=== PATIENT | female | born 1975 | race Asian ===

== ENCOUNTER 2019-03-31 12:22 | Outpatient (CLI) | payer OTHER ==
[2019-03-31 18:20] LABS: BASOPHILS % (AUTO) 0.5 %; EOSINOPHILS % (AUTO) 0.5 %; HGB - HEMOGLOBIN 12.7 g/dL (12.0-16.0); LYMPHOCYTES # (AUTO) 1.3 10^3/uL (1.5-3.5); LYMPHOCYTES % (AUTO) 29.5 %; MEAN CORPUSCULAR HEMOGLOBIN 28.8 pg (27.0-31.0); MEAN PLATELET VOLUME 12.2 fL (7.9-10.8); MONOCYTES # (AUTO) 0.3 10^3/uL (0.0-1.0); MONOCYTES % (AUTO) 6.1 %; NEUTROPHILS # (AUTO) 2.8 10^3/uL (1.5-6.6); NEUTROPHILS % (AUTO) 63.2 %; PLT - PLATELET COUNT 196 10^3/uL (130-450); RED BLOOD COUNT 4.41 10^6/uL (4.20-5.40); RED CELL DISTRIBUTION WIDTH 12.4 % (12.0-15.0); WHITE BLOOD COUNT 4.4 x10^3/uL (4.8-10.8)
[2019-03-31 18:45] LABS: ALBUMIN 4.4 g/dL (3.2-5.5); ALBUMIN/GLOBULIN RATIO 1.9 (1.0-2.2); ALKALINE PHOSPHATASE 32 IU/L (42-121); ALT ALANINE AMINOTRANSFERASE 11 IU/L (10-60); AST ASPARTATE AMINOTRANSFERASE 16 IU/L (10-42); BILIRUBIN,TOTAL 1.4 mg/dL (0.2-1.0); BUN - BLOOD UREA NITROGEN 10 mg/dL (6-20); CALCIUM 8.6 mg/dL (8.5-10.3); CARBON DIOXIDE - CO2 30 mmol/L (21-32); CHLORIDE 102 mmol/L (101-111); CHOL/HDL RATIO 2.9 (<4.4); CHOLESTEROL 177 mg/dL; CREATININE 0.5 mg/dL (0.4-1.0); GFR - MDRD 136 (>89); GLUCOSE 95 mg/dL (70-100); HDL CHOLESTEROL 62 mg/dL; LDL CHOLESTEROL,CALCULATED 102 mg/dL; LDL/HDL RATIO 1.6 (<4.4); SODIUM 139 mmol/L (135-145); TOTAL PROTEIN 6.7 g/dL (6.7-8.2); VLDL CHOLESTEROL 13 mg/dL
== END 2019-03-31 23:59 | disposition home or self-care (01) ==
LOC: LAB.N 12:22
PROVIDERS: ATTEND Nurse Practitioner Gerontology
DX: Z13.9 Encounter for screening, unspecified (principal)
CPT/HCPCS: 36415; 80053; 80061; 83721; 84443; 85025

== ENCOUNTER 2019-04-08 13:49 | Outpatient (CLI) | payer OTHER ==
--- NOTE | 2019-04-09 08:38 | Mammography Report ---
Reason: ROUTINE MAMMO Procedure Date: 04/08/2019 Accession Number: [id number] / [id number] Procedure: MGN - Screening Mammo Dig Bilat CPT Code: Final Report FULL RESULT: EXAM: Screening Mammo Dig Bilat DATE: 04/08/2019 2:12 PM CLINICAL HISTORY: Screening encounter. baseline examination. TECHNIQUE: (B) - Bilateral CC, laterally exaggerated CC, MLO views were obtained. COMPARISON: None PARENCHYMAL PATTERN: (VD) - The breast(s) demonstrate(s) extremely dense parenchyma, limiting the sensitivity of mammography. FINDINGS: There are no suspicious masses, calcifications, or areas of distortion. IMPRESSION: Negative examination. BI-RADS category 1. RECOMMENDATION: (ANNUAL) - Recommend routine annual screening mammography. BI-RADS CATEGORY: (1) - Negative. STANDARD QUALIFYING STATEMENTS: 1. This examination was not reviewed with the aid of Computer-Aided Detection (CAD). 2. A negative or benign imaging report should not preclude biopsy if clinically suspicious findings are present. 3. Dense breasts may obscure an underlying neoplasm. 4. This examination was reviewed without the aid of 3D breast imaging (tomosynthesis).
== END 2019-04-08 13:50 | disposition home or self-care (01) ==
LOC: DI.N 13:49
PROVIDERS: ATTEND Nurse Practitioner Gerontology
DX: Z12.31 Encounter for screening mammogram for malignant neoplasm of breast (principal)
CPT/HCPCS: 77067

== ENCOUNTER 2019-06-28 14:08 | Emergency (ER) | payer OTHER ==
--- NOTE | 2019-06-28 14:29 | ED Physician Documentation ---
PD HPI FEVER - Stated complaint Stated Complaint: COUGH - History obtained from History obtained from: Patient (43-year-old woman without any health problems got back from [place] about a week ago. She was in [facility]. She is had 6 days of fever with some back pain, sore throat. No runny nose or cough. Mild shortness of breath.) Review of Systems Ten Systems: 10 systems reviewed and negative Constitutional: reports: Fever, Chills, Fatigue Nose: denies: Rhinorrhea / runny nose Throat: reports: Sore throat Cardiac: denies: Chest pain / pressure, Palpitations Respiratory: reports: Dyspnea. denies: Cough PD ED PE NORMAL - Vitals Vital signs reviewed: Yes - General General: Alert and oriented X 3, No acute distress - HEENT HEENT: Ears normal - Neck Neck: Supple, no meningeal sign, No bony TTP - Cardiac Cardiac: RRR, No murmur - Respiratory Respiratory: No respiratory distress, Clear bilaterally - Abdomen Abdomen: Non tender - Derm Derm: No rash - Neuro Neuro: Alert and oriented X 3, Normal speech Results - Vitals Vitals: Vital Signs - 24 hr 06/28/19 06/28/19 14:19 14:30 Temperature 37.0 C 37.0 C Heart Rate 69 69 Respiratory 18 14 Rate Blood Pressure 129/79 129/79 O2 Saturation 100 100 Oxygen O2 Source Room air - Labs Labs: Laboratory Tests 06/28/19 06/28/19 14:44 14:44 Influenza A (Rapid) Negative Influenza B (Rapid) Negative Group A Strep Rapid Negative PD MEDICAL DECISION MAKING - ED course ED course: 43-year-old woman returns from [place] with fever. She appears well and her vitals are normal here as is her examination. PE is considered but given the lack of Abnormal vital signs or leg symptoms or hemoptysis this is considered unlikely. Consideration for coronavirus was undertaken of course the health department had already known about this patient and they recommended we collect a viral panel and she can be discharged home with home quarantine. They are involved. Flu strep and chest x-ray are negative. Departure - Departure Disposition: 01 Home, Self Care Clinical Impression: Fever Qualifiers: Fever type: due to other condition Qualified Code(s): R50.81 - Fever presenting with conditions classified elsewhere Condition: Good Record reviewed to determine appropriate education?: Yes Instructions: ED Fever Unconf Cause Comments: Follow-up with your doctor Sunday if not better, return for new or worsening symptoms. Your chest x-ray is normal as is your flu and strep swab. Viral panel is collected and should be followed up on by the health department. Follow-up with them in a week if you have not heard. Stay in your house until then. Do not leave your house.
--- NOTE | 2019-06-28 15:04 | XRAY Report ---
Reason: fever Procedure Date: 06/28/2019 Accession Number: [id number] / [id number] Procedure: XR - Chest 2 View X-Ray CPT Code: 23871 Final Report FULL RESULT: EXAM: CHEST RADIOGRAPHY EXAM DATE: 06/28/2019 02:56 PM. CLINICAL HISTORY: Fever. COMPARISON: CHEST 2 VIEW PA/LAT 06/21/2015 2:03 PM. TECHNIQUE: 2 views. FINDINGS: Lungs/Pleura: No focal opacities evident. No pleural effusion. No pneumothorax. Normal volumes. Mediastinum: Heart and mediastinal contours are unremarkable. Other: None. IMPRESSION: Normal 2-view chest radiography. RADIA
[2019-06-28 15:12] LABS: RAPID STREP SCREEN Negative (Negative)
[2019-06-28 15:52] VITALS: BP 128/80
== END 2019-06-28 15:30 | disposition home or self-care (01) ==
LOC: ED 14:08
DX: R50.9 Fever, unspecified (principal)
CPT/HCPCS: 71046; 81599; 87070; 87275; 87276; 87430; 99283; 99284

== ENCOUNTER 2019-08-19 12:30 | Outpatient (CLI) | payer OTHER ==
--- NOTE | 2019-08-19 21:06 | Ultrasound Report ---
Reason: IUD SURVEILLANCE Procedure Date: 08/19/2019 Accession Number: [id number] / [id number] Procedure: US - Pelvic w/Transvaginal CPT Code: Final Report FULL RESULT: EXAM: PELVIC ULTRASOUND EXAM DATE: 08/19/2019 01:44 PM. CLINICAL HISTORY: Intrauterine device surveillance. Spotting. COMPARISON: None. TECHNIQUE: Realtime transabdominal pelvic scan performed to identify the uterus and adnexa and as an overview of other pelvic structures, followed by transvaginal scan to provide greater detail of the uterus and adnexa, with static image documentation. FINDINGS: Uterus: 12.3 x 4.8 x 4.5 cm, volume 139 cc. Anteverted position. Normal overall size and echotexture. Masses: A large right fundal transmural fibroid measures 8.5 x 7.4 x 6.5 cm. Endometrium: 17 mm. A ring-shaped IUD is present in the distal endometrial canal measuring 2.2 cm. It appears in satisfactory position. No endometrial thickening or mass lesion evident. Cervix: Unremarkable. Right Ovary: 2.0 x 1.8 x 2.4 cm, volume 4.5 cc. Normal echotexture and blood flow. Left Ovary: 3.2 x 3.1 x 2.2 cm, volume 11.4 cc. Normal echotexture and blood flow. Free Fluid: A small amount of free fluid present surrounding the uterus. Other: None. IMPRESSION: 1. Ring-shaped IUD and distal endometrial canal in satisfactory position. 2. Large right fundal transmural fibroid measuring up to 8.5 cm with probable small submucosal component. 3. Small free fluid noted. RADIA
== END 2019-08-19 12:31 | disposition home or self-care (01) ==
LOC: DI 12:30
PROVIDERS: ATTEND Nurse Practitioner Gerontology
DX: Z30.431 Encounter for routine checking of intrauterine contraceptive device (principal); D25.1 Intramural leiomyoma of uterus
CPT/HCPCS: 76830; 76856

== ENCOUNTER 2020-01-25 09:14 | Outpatient (CLI) | payer OTHER ==
--- NOTE | 2020-01-25 13:42 | Ultrasound Report ---
PROCEDURE: Pelvic w/Transvaginal INDICATIONS: FIBROID TECHNIQUE: Real-time scanning was performed of the pelvic organs, with image documentation. Additional endovagi nal scanning was necessary due to incomplete visualization of the adnexal and endometrial structures by transabdominal scanning. COMPARISON: 08/19/2019 FINDINGS: Transabdominal scanning: Limited scanning through the kidneys shows no hydronephrosis. No pathologi c free abdominal or pelvic fluid. Endovaginal scanning: Uterus: Uterus is normal in size at 9.2 x 4.4 x 8.8 cm. The endometrium measures 9 mm in combined t hickness. An IUD is seen at the expected location within the uterine fundus. The uterus demonstrates a heterogeneous appearance. There is a fibroid seen on the right which is intramural/submucosal and measures 6.1 x 5.3 x 4.7. This is smaller than on the prior study when it measured 8.5 x 7.5 x 6.5 cm Ovaries: The right ovary measures 2.6 x 1.5 x 2.3 cm and demonstrates a septated cyst that measures up to 1.5 cm. The left ovary measures 2.5 x 1.8 x 2.1 cm and also demonstrates a septated cyst that measures up to 1.5 cm. Each ovary demonstrates less than 12 follicles. No adnexal masses are seen. IMPRESSION: There is a right-sided uterine fibroid that today measures 6.1 x 5.3 x 4.7, which is smaller than on the prior examination. Please correlate with interval potential treatment history. An IUD is seen. Septated ovarian cysts are seen involving the ovaries that measure up to 1.5 cm, which are most likel y benign in a patient of this age. Reviewed by: Rome Kendall MD on 01/25/2020 12:40 PM ABENA Approved by: Rome Kendall MD on 01/25/2020 12:40 PM ABENA Station ID: [id number]
== END 2020-01-25 09:15 | disposition home or self-care (01) ==
LOC: DI 09:14
PROVIDERS: ATTEND Obstetrics & Gynecology
DX: D25.9 Leiomyoma of uterus, unspecified (principal)
CPT/HCPCS: 76830; 76856

== ENCOUNTER 2020-03-16 16:39 | Outpatient (CLI) | payer OTHER ==
--- NOTE | 2020-03-17 10:47 | Ultrasound Report ---
PROCEDURE: Pelvic w/Transvaginal INDICATIONS: FIBROID TECHNIQUE: Real-time scanning was performed of the pelvic organs, with image documentation. Additional endovagi nal scanning was necessary due to incomplete visualization of the adnexal and endometrial structures by transabdominal scanning. COMPARISON: Prior pelvic ultrasound 01/25/2020 and 08/19/2019. FINDINGS: Transabdominal scanning: Limited scanning through the kidneys shows no hydronephrosis. No pathologi c free abdominal or pelvic fluid. Endovaginal scanning: Uterus: Uterus is mildly enlarged in size at 6.2 x 2.4 x 10.9 cm., Containing uterine fibroids. The largest is located on the right and is subserosal/intramural measuring up to 7.0 x 7.9 x 8.1 cm. This compares to prior measurement of dated 08/19/2019 of 6.5 x 7.4 x 8.5 cm. Given slight differences in scan angulation this likely does not represent a significant change. There is also a additional midl ine anterior intramural fibroid measuring approximately 2.5 x 2.6 x 3.3 cm. The endometrium measures 15 mm in combined thickness. Centrally positioned IUD noted. Ovaries: The ovaries bilaterally are normal in size, measuring 2.8 x 1.2 x 3.0 cm on the right and 3 .1 x 2.4 x 2.3 cm on the left. A left ovarian follicular cyst measures 1.6 x 1.7 x 1.9 cm. IMPRESSION: Considering slight differences in angulation the dominant uterine fibroid on the right has not signif icantly changed from the measurements obtained in July of this year during additional pelvic ultraso und. This fibroid has not diminished in size, and a newly visualized fibroid measuring 2.5 x 2.6 x 3. 3 cm is currently described, potentially an exophytic component of the dominant fibroid on the right. Endometrial lining thickness is 15 mm, just below the threshold for hyperplasia. Centrally positioned IUD noted. Reviewed by: Heriberto Daniels MD on 03/17/2020 10:45 AM PDT Approved by: Heriberto Daniels MD on 03/17/2020 10:45 AM PDT Station ID: [id number]
== END 2020-03-16 16:40 | disposition home or self-care (01) ==
LOC: DI 16:39
PROVIDERS: ATTEND Obstetrics & Gynecology
DX: D25.1 Intramural leiomyoma of uterus (principal); D25.2 Subserosal leiomyoma of uterus; Z97.5 Presence of (intrauterine) contraceptive device
CPT/HCPCS: 76830; 76856

== ENCOUNTER 2020-04-08 10:24 | Emergency (ER) | payer OTHER ==
--- NOTE | 2020-04-08 10:43 | ED Physician Documentation ---
History of Present Illness - Stated complaint Stated Complaint: INJECTION/SENT BY - Chief complaint Chief Complaint: General - History obtained from History obtained from: Patient - Additonal information Additional information: 44-year-old woman with fibroids is getting Lupron preoperatively to shrink the tumors and checked into the emergency department for her IM injection. She has the med with her. She has no acute complaints. Review of Systems Constitutional: denies: Fever, Chills GI: denies: Abdominal Pain, Nausea, Vomiting Musculoskeletal: reports: Reviewed and negative PD PAST MEDICAL HISTORY - Allergies Allergies/Adverse Reactions: Allergies Allergy/AdvReac Type Severity Reaction Status Date / Time No Known Drug Allergies Allergy Verified 04/08/20 10:35 PD ED PE NORMAL - Vitals Vital signs reviewed: Yes - General General: Alert and oriented X 3, No acute distress - Derm Derm: Normal color, Warm and dry - Extremities Extremities: No edema, No calf tenderness / cord - Neuro Neuro: Alert and oriented X 3, Normal speech Results - Vitals Vitals: Vital Signs - 24 hr 04/08/20 10:30 Temperature 36.3 C L Heart Rate 66 Respiratory 98 H Rate Blood Pressure 100/57 L Oxygen O2 Source Room air PD MEDICAL DECISION MAKING - ED course ED course: She has no acute complaints, she was actually supposed to check in as an outpatient to the [facility] but ended up in the emergency department somewhat by mistake. We will give her her injection that she has with her after the pharmacist clears it. Departure - Departure Disposition: 01 Home, Self Care Clinical Impression: Fibroids Condition: Good Record reviewed to determine appropriate education?: Yes Instructions: ED Fibroids Comments: Follow-up with your applied biology professor as scheduled.
[2020-04-08 10:54] VITALS: BP 96/74
[2020-04-08] MEDS ORDERED: LEUPROLIDE 3.75 MG IM ONE (11:00)
== END 2020-04-08 10:54 | disposition home or self-care (01) ==
LOC: ED 10:24
DX: D25.9 Leiomyoma of uterus, unspecified (principal)
CPT/HCPCS: 96372; 99281; 99283

== ENCOUNTER 2020-04-16 10:54 | Outpatient (CLI) | payer OTHER | END 2020-04-16 10:55 | disposition home or self-care (01) | LOC: LAB 10:54 | PROVIDERS: ATTEND Obstetrics & Gynecology | DX: Z01.818 Encounter for other preprocedural examination (principal); D25.9 Leiomyoma of uterus, unspecified; Z20.828 Contact with and (suspected) exposure to other viral communicable diseases ==

== ENCOUNTER 2020-04-16 11:06 | Outpatient (CLI) | payer OTHER ==
--- NOTE | 2020-04-16 12:22 | XRAY Report ---
PROCEDURE: Chest 2 View X-Ray INDICATIONS: PREOP FOR HYSTERECTOMY TECHNIQUE: 2 view(s) of the chest. COMPARISON: CXR 06/28/2019. FINDINGS: Surgical changes and devices: None. Lungs and pleura: No pleural effusions or pneumothorax. Lungs are clear and unchanged. Mediastinum: Mediastinal contours are normal. Heart size is normal. Bones and chest wall: No suspicious bony abnormalities. Soft tissues appear unremarkable. IMPRESSION: Normal CXR. Reviewed by: Milton Mendenhall MD on 04/16/2020 12:21 PM PST Approved by: Milton Mendenhall MD on 04/16/2020 12:21 PM PST Station ID: [id number]
== END 2020-04-16 11:07 | disposition home or self-care (01) ==
LOC: DI 11:06
PROVIDERS: ATTEND Obstetrics & Gynecology
DX: Z01.818 Encounter for other preprocedural examination (principal); D25.9 Leiomyoma of uterus, unspecified; Z20.828 Contact with and (suspected) exposure to other viral communicable diseases

== ENCOUNTER 2020-04-21 07:43 | Day surgery (SDC) | payer OTHER ==
[~2020-04-21 07:43] MED LIST: CEFAZOLIN SODIUM IN 0.9 % NACL 2 GM/100 ML BAG IV ONE
[2020-04-21 08:09] LABS: HCG UR QUAL NEGATIVE
[2020-04-21] MEDS ORDERED: LACTATED RINGERS 1,000 ML IV ONE ×3 (08:23→15:24)
--- NOTE | 2020-04-21 09:18 | ANESTHESIA ---
Pre-Anesthesia VS, & Labs - Diagnosis Fibroid uterus - Procedure LAVH w/bilat salpigectomy, cystoscopy Vital Signs: Temp Pulse Resp BP Pulse Ox 36.4 C L 65 16 101/63 100 04/21/20 07:53 04/21/20 07:53 04/21/20 07:53 04/21/20 07:53 04/21/20 07:53 Height: 5 ft 6 in Weight (kg): 60.4 kg Body Mass Index: 21.4 BMI Classification: Healthy weight - NPO >8 hours - Is Patient ?: No - Lab Results Lab results reviewed: Yes Home Medications and Allergies Home Medications: Ambulatory Orders Vitamin B Complex 1 each PO DAILY 04/21/20 Vitamin B Complex 1 each PO DAILY 04/21/20 Allergies/Adverse Reactions: Allergies Allergy/AdvReac Type Severity Reaction Status Date / Time No Known Drug Allergies Allergy Verified 04/08/20 10:35 Anes History & Medical History - Anesthetic History Anesthesia Complications: reports: No previous complications Family history of Anesthesia Complications: Denies Family history of Malignant Hyperthermia: Denies - Medical History Cardiovascular: reports: None Pulmonary: reports: None, Other (dry cough x 1 month, states she gets this annualy) Gastrointestinal: reports: None Urinary: reports: None Musculoskeletal: reports: None Endocrine/Autoimmune: reports: None Skin: reports: None Psychosocial: reports: No issues indicated History of Cancer?: No Exam General: Alert, Oriented x3, Cooperative Dental: WNL Mouth Openin Fingerbreadth Neck Mobility: Normal Mallampati classification: II Thyromental Distance: greater than 6 cm Respiratory: Lungs clear, Normal breath sounds Cardiovascular: Regular rate Neurological: Normal speech Mental/Cognitive Status: Alert/Oriented X3, Normal for patient Cognitive Status: Within normal limits Plan Anesthesia Type: General, Transverse Abdominis Plane (TAP) Block (if convert to open) Consent for Procedure(s) Verified and Reviewed: Yes Code Status: Attempt Resuscitation ASA classification: 2-Mild systemic disease Is this case an emergency?: No
[2020-04-21] MEDS ORDERED: BUPIVACAINE 0.25%-EPI 1:200000 PF 30 ML VIAL ONE ×2 (09:22→11:50)
[2020-04-21] MEDS ORDERED: BUPIVACAINE 0.25% PF 30 ML VIAL ONE (09:22)
[2020-04-21] MEDS ORDERED: PHENAZOPYRIDINE 100 MG TABLET PO ONE (09:47)
[2020-04-21] MEDS ORDERED: KETOROLAC 30 MG/ML VIAL IVP ONE (10:40)
[2020-04-21] MEDS ORDERED: GLYCOPYRROLATE 1 MG/5 ML VIAL IVP ONE (10:40)
[2020-04-21] MEDS ORDERED: fentaNYL 100 MCG/2 ML VIAL IVP ONE (10:40)
[2020-04-21] MEDS ORDERED: ONDANSETRON 4 MG/2 ML VIAL IVP ONE (10:40)
[2020-04-21] MEDS ORDERED: DEXAMETHASONE 4 MG/ML VIAL IVP ONE (10:40)
[2020-04-21] MEDS ORDERED: MAGNESIUM SULFATE 1 GM/2 ML VIAL IV ONE (10:40)
[2020-04-21] MEDS ORDERED: ACETAMINOPHEN 1,000 MG/100 ML 100 ML IV ONE ×2 (10:40→10:45)
[2020-04-21] MEDS ORDERED: KETAMINE 500 MG/10 ML VIAL IVP ONE (10:40)
[2020-04-21] MEDS ORDERED: PROPOFOL 200 MG/20 ML VIAL IVP ONE (10:40)
[2020-04-21] MEDS ORDERED: ROCURONIUM 50 MG/5 ML VIAL IVP ONE (10:40)
[2020-04-21] MEDS ORDERED: ePHEDrine 50 MG/ML VIAL IVP ONE (10:40)
[2020-04-21] MEDS ORDERED: SUCCINYLCHOLINE 200 MG/10 ML VIAL IVP ONE (10:40)
[2020-04-21] MEDS ORDERED: MIDAZOLAM 2 MG/2 ML VIAL IVP ONE (10:40)
[2020-04-21] MEDS ORDERED: SODIUM CHLORIDE 0.9% IV ONE (10:40)
[2020-04-21] MEDS ORDERED: HYDROmorphone 1 MG/ML CARPUJECT IVP ONE (10:40)
[2020-04-21] MEDS ORDERED: LIDOCAINE-MPF 2% 5 ML VIAL IM ONE (10:40)
[2020-04-21] MEDS ORDERED: OXYTOCIN IV ONE (10:40)
[2020-04-21] MEDS ORDERED: PROPOFOL 500 MG/50 ML 500 MG/50 ML VIAL ONE (10:45)
[2020-04-21] MEDS ORDERED: BUPIVACAINE 0.25%-EPI 1:200000 PF 10 ML VIAL SUBQ ONE (11:28)
[2020-04-21] MEDS ORDERED: BUPIVACAINE 0.25%-EPI 1:200000 PF 30 ML VIAL SUBQ ONE ×3 (11:45)
[2020-04-21] MEDS ORDERED: HYDROmorphone 0.5 MG/0.5 ML SYRINGE IVP PRN ×2 (14:17→15:40)
[2020-04-21] MEDS ORDERED: ONDANSETRON 4 MG/2 ML VIAL IVP PRN ×2 (14:17→15:40)
[2020-04-21] MEDS ORDERED: ACETAMINOPHEN 500 MG TABLET PO PRN (14:18)
[2020-04-21] MEDS ORDERED: KETOROLAC 30 MG/ML VIAL IVP PRN (14:18)
--- NOTE | 2020-04-21 14:57 | OPERATIVE REPORT ---
Operative Report - General Procedure Date: 04/21/20 Planned Procedure: LAVH with BS and cysto Pre-Op Diagnosis: Fibroid uterus Procedure Performed: LAVH with BS and Cysto Post Op Diagnosis: Same - Procedure Note Primary Surgeon: Mao Beal MD Secondary Surgeon: Chrissy Vale Anesthesia Provider: Aracely Ugalde CRNA Anesthesia Technique: General ET tube Pathology: Uterus with both tubes attached. IV Fluids (mL): 1,600 Estimated Blood Loss (mL): 100 Urine Output (mL): 600
[2020-04-21] MEDS ORDERED: ATROPINE ABBOJECT 1 MG/10 ML SYRINGE IVP PRN (15:40)
[2020-04-21] MEDS ORDERED: MORPHINE 2 MG/ML CARPUJECT IVP PRN (15:40)
[2020-04-21] MEDS ORDERED: fentaNYL 100 MCG/2 ML VIAL IVP PRN (15:40)
[2020-04-21] MEDS ORDERED: METOCLOPRAMIDE 10 MG/2 ML VIAL IVP PRN (15:40)
[2020-04-21] MEDS ORDERED: NALOXONE 0.4 MG/ML VIAL IVP PRN (15:40)
[2020-04-21] MEDS ORDERED: ePHEDrine 50 MG/ML VIAL IVP PRN (15:40)
[2020-04-21] MEDS ORDERED: LACTATED RINGERS 1,000 ML IV SCH (16:00)
[2020-04-21] MEDS: PHENAZOPYRIDINE 100 MG TABLET PO SCH ×2 (16:36→21:25)
--- NOTE | 2020-04-21 17:42 | ANESTHESIA POST OP EVALUATION ---
Anesthesia Post Eval - Post Anesthesia Eval Vitals: Last Vital Signs Temp 36.8 C 04/21/20 17:15 Pulse 75 04/21/20 17:15 Resp 16 04/21/20 17:15 BP 94/59 L 04/21/20 17:15 Pulse Ox 99 04/21/20 17:15 CV Function Including HR & BP: positive: Stable Pain Control: positive: Satisfactory Nausea & Vomiting: positive: Negative Mental Status: positive: Baseline Respiratory Status: Airway Patent Hydration Status: Satisfactory Anesthesia Complications: positive: None
[2020-04-21] MEDS: oxyCODONE 5 MG TABLET PO PRN (21:24)
--- NOTE | 2020-04-22 02:11 | OPERATIVE REPORT ---
DATE OF SERVICE: 04/21/2020 Physician: Mao Beal MD PREOPERATIVE DIAGNOSIS: Fibroid uterus. POSTOPERATIVE DIAGNOSIS: Fibroid uterus. PROCEDURE PERFORMED: Total laparoscopic hysterectomy with bilateral salpingectomy and cystoscopy. SURGEON: Mao Beal MD [employer]: Lanie Vale MD ANESTHESIA: SOLE Nguyễn. ANESTHETIC: General via endotracheal tube. ESTIMATED BLOOD LOSS: 100 mL IV FLUIDS: 1600 mL URINE OUTPUT: 600 mL FINDINGS: Pelvic examination under anesthesia revealed a uterus which was roughly 14 week size and extended predominantly into the left lower quadrant. It appeared to be free and mobile. Upon entering the abdominal cavity, there was a large fibroid uterus which filled the pelvic cavity; however, there was adequate visualization on either side for which to do the hysterectomy. The tubes and ovaries appeared to be free of disease. There was evidence of endometriosis, particularly on the left uterosacral ligament. Ureters were visualized and noted to be within normal limits. Cystoscopy was performed at the end of the case, at which there was good evidence of good urinary flow from both ureters. PROCEDURE: Following adequate endotracheal anesthesia, patient was placed in dorsal lithotomy position in [facility]. At this point, a pelvic examination was performed and then she was prepped and draped in the usual fashion. A timeout was performed, at which concerns were addressed. The concern about the size of the uterus and the possible need to utilize a mini Pfannenstiel incision to remove it was mentioned. The procedure was commenced. Speculum was placed in the vagina. Cervix was visualized and grasped with a single-tooth tenaculum. The uterosacral ligaments on both sides were injected with 10 mL of 0.25% Marcaine with epinephrine. The cervix was dilated to size 8 mm and then a prestressed concrete laborer with a 4 cm cup was placed in the vagina. Care was taken to assure that it extended all the way into the fornices. At this point, the balloons were inflated. The directional bore operator's gloves were changed. A vertical stab wound was made above the umbilicus secondary to the size of the uterus. A 5 mm trocar was placed and the abdomen was visualized. There was no evidence of any injury at site of insertion. The uterus filled the pelvis. Two additional ports were placed, both in left and right lower sides. These were about the level of the umbilicus. Local anesthesia was utilized and a skin incision was made with a #11 blade and trocars were placed under direct visualization. The pelvis was visualized. The appendix was normal, as well as the ureter visualized on the right-hand side. At this point, the right fallopian tube was grasped and then utilizing the LigaSure, it was cauterized and transected. Care was taken to stay as close to the tube as possible to minimize risk of injury to vessels to the ovaries. This was carried all the way down to the cornual area. Then, the uterosacral ligament was cauterized and transected as well as the round ligament being cauterized and transected. The posterior leaf of the broad ligament was cauterized and transected. Care was taken to stay as close to the uterus as possible to minimize risk of injury to the ureter. Then, the anterior leaf of the broad ligament was cauterized and transected with the LigaSure. This was carried across the lower uterine segment. A bladder flap was initially developed at this time. The uterine vessels on the right-hand side were cauterized and transected. At this point, attention was turned to the left-hand side. Tube was grasped and then the mesosalpinx was cauterized and transected with LigaSure. This was carried all the way down to the cornu and then the round ligament was cauterized and transected as well as the uteroovarian ligament. The anterior leaf of the broad ligament was opened and then this was carried down to the lower uterine segment. The posterior leaf of the broad ligament was also cauterized and transected. Once again, care was taken to stay as close to the uterus as possible to decrease the risk of injury to the ureters. A bladder flap was then developed. This was somewhat difficult secondary to the bulky nature of the uterus. At this point, the anvil of the prestressed concrete laborer was palpated, both anterolaterally as well as inferiorly. Care was taken to isolate and transect all the vessels as much as possible to decrease the risk of bleeding. A Harmonic scalpel was then used anteriorly and started to circumscribe the cervix at the level of the anvil of the prestressed concrete laborer. This was carried all the way to the posterior portion. Then, on the left-hand side, the Harmonic scalpel was also utilized to transect the apex of the vagina from the cervix. At the point that the uterus was free of its attachments, we went down to the lower segment. Then, the cervix was visualized, grasped with a single-tooth tenaculum and worked down to the vagina as much as possible. The bulk of the fibroid at the apex was somewhat difficult to work with. The uterus was then grasped with thyroid Trudy clamps and eventually it was removed. The apex of the vagina was inspected and an Asepto syringe was placed inversely in the uterus to maintain pneumoperitoneum. The area was inspected. There was no evidence of bleeding, so the apex of the vagina was closed utilizing 0 V-Loc suture. This was done through the right lower quadrant port, which had previously been extended for an 11 mm port. Upon closure, the apex of the vagina was inspected. There was no evidence of any bleeding. There was a little bit of oozing from what appeared to be the uterine vessel on the left-hand side. Gentle cautery was utilized to decrease risk of ureter damage and then hemostatic mesh was placed over this area. There was evidence of good hemostasis. At this point, cystoscopy was performed and a cystoscope was introduced with a 70-degree scope. There was evidence of excellent flow from both ureteral orifices. This was stained with Pyridium, as the patient had been given this medication prior to surgery. There is no evidence of any injury to the entire bladder at this point. At this point, the cystoscope was removed. The Schreiber was replaced and the incisions were closed utilizing 4-0 Monocryl subcuticularly on all the incisions. Upon further inspection, there was evidence of a tear in the vagina on the right labia as well as the posterior fourchette. These were closed utilizing 2-0 Vicryl. The patient tolerated the procedure well and was taken to recovery in stable condition. The uterus was weighed and it was noted to be 485 grams. Sponge and needle counts were correct. Dr. Vale was instrumental in her assistance during this case. She did the left-hand side as well as assisted with helping remove the uterus. TD: 04/21/2020 15:09 PARVIZ
[2020-04-22] MEDS: PHENAZOPYRIDINE 100 MG TABLET PO SCH (06:19)
[2020-04-22] MEDS: oxyCODONE 5 MG TABLET PO PRN (07:00)
[2020-04-22] MEDS ORDERED: BISACODYL 10 MG SUPP PR PRN (07:57)
--- NOTE | 2020-04-22 08:00 | PROVIDER PROGRESS NOTE ---
Subjective - General Procedure Date: 04/21/20 Post Op Days: 1 Procedure Performed: TLH with BS and cysto - Review of Systems Wound/Incisions: positive: Healing well General: positive: No symptoms (Pain 5/10.) Pulmonary: positive: Cough Gastrointestinal: positive: Flatus Genitourinary: positive: No symptoms Objective - Patient Data Reviewed Vital Signs: Yes Vital Signs: Vital Signs x48h Temp Pulse Resp BP BP Pulse Ox 04/22/20 06:14 36.9 C 62 16 91/50 L 98 04/22/20 00:49 37.3 C 78 18 102/49 L 98 Weight: Weight 04/20/20 04/21/20 04/22/20 23:59 23:59 23:59 Weight (kg) 60.4 kg Intake & Output: Intake and Output Totals x24h 04/20/20 04/21/20 04/22/20 23:59 23:59 23:59 Intake Total 1920 150 Output Total 1450 875 Balance 470 -725 - Lab Results Other Lab Results: Lab Results x24hrs 04/21/20 Range/Units 08:00 Ur Specific [place] 1.020 (1.002-1.030) Urine HCG, Qual NEGATIVE - Current Medications Current Medications: Current Medications Generic Name Dose Route Start Last Admin Trade Name Freq PRN Reason Stop Dose Admin Ketorolac Tromethamine 30 mg 04/21/20 14:18 04/22/20 07:55 Ketorolac 30 Mg/Ml Vial IVP 04/26/20 14:17 30 mg Q6HR PRN Administration PAIN Oxycodone HCl 5 mg 04/21/20 14:17 04/22/20 07:00 Oxycodone 5 Mg Tablet PO 5 mg Q4HR PRN Administration PAIN Phenazopyridine HCl 100 mg 04/21/20 14:00 04/22/20 06:19 Phenazopyridine 100 Mg Tablet PO 100 mg TID ETHAN Administration - Physical Exam Wound/Incisions: positive: Healing well General Appearance: positive: No acute distress, Alert Respiratory: positive: Chest non-tender, No respiratory distress, Breath sounds nml Cardiovascular: positive: Regular rate & rhythm, No murmur, No gallop Abdomen: positive: Non-tender, Nml bowel sounds Back: negative: CVA tenderness (R), CVA tenderness (L) Skin: positive: Color nml, No rash, Warm Extremities: negative: Calf tenderness, Rj's sign/cords Neurologic/Psychiatric: positive: Oriented x3 Impression/Plan - Problem List Problem List: S/P TLHwith BS and Cysto. Pain 09/27. has not received toradol Post op. will start. C/O constipation. give duloclax and Colace. C/O cough start Incentive spirometry. Send Home. RTC 2 weeks as I am on vacation. Told to call clinic if problems Discharge medications Oxycodone 5 mg Motrin 600mg Colace 100 mg
--- NOTE | 2020-04-22 08:09 | Discharge Plan ---
Discharge Plan Problem Reviewed?: Yes Disposition: Home, Self Care Condition: Good Prescriptions: Docusate Sodium 100Mg Capsule [Colace 100Mg Capsule] 100 mg PO ONCE PRN #30 capsule PRN Reason: Constipation Docusate Sodium 100Mg Capsule [Colace 100Mg Capsule] 100 - 200 mg PO BID PRN #60 capsule PRN Reason: Constipation Ibuprofen [Motrin] 600 mg PO Q6H PRN #30 tab PRN Reason: Pain Ibuprofen [Motrin] 600 mg PO Q6H PRN #30 tab PRN Reason: Pain oxyCODONE [Roxicodone] 5 mg PO Q4-6H PRN #10 tablet PRN Reason: Pain oxyCODONE [Roxicodone] 5 mg PO Q4H PRN #24 tablet PRN Reason: Pain Acetaminophen [Tylenol] 650 mg PO Q6H PRN #30 tablet PRN Reason: PRN PAIN &/OR FEVER Diet: Regular Activity Restrictions: pelvic rest Shower Restrictions: Yes Driving Restrictions: Yes (not while taking narcotics) No Smoking: If you smoke, Please STOP! Call for help.
[2020-04-22] MEDS ORDERED: DOCUSATE SODIUM 250 MG CAPSULE PO SCH (09:00)
[2020-04-22 09:19] VITALS: BP 100/56
== END 2020-04-22 10:45 | disposition home or self-care (01) ==
LOC: SDS 07:43 → MS2 15:56 → SDS 04-22 10:45
PROVIDERS: ATTEND Obstetrics & Gynecology
PROC: 0UT74ZZ Resection of Bilateral Fallopian Tubes, Percutaneous Endoscopic Approach (ICD-10-PCS; 2020-04-21)
PROC: 0UT94ZZ Resection of Uterus, Percutaneous Endoscopic Approach (ICD-10-PCS; principal; 2020-04-21 09:30)
DX: D25.9 Leiomyoma of uterus, unspecified (principal); N80.3 Endometriosis of pelvic peritoneum
CPT/HCPCS: 58573; 81025; A9270; J0131; J0330; J0690; J1170; J7120

== ENCOUNTER 2020-06-23 08:00 | Outpatient (CLI) | payer OTHER ==
[2020-06-23 18:03] LABS: BASOPHILS % (AUTO) 0.5 %; EOSINOPHILS % (AUTO) 0.8 %; HGB - HEMOGLOBIN 13.1 g/dL (12.0-16.0); LYMPHOCYTES # (AUTO) 1.4 10^3/uL (1.5-3.5); LYMPHOCYTES % (AUTO) 34.9 %; MEAN CORPUSCULAR HGB CONC 32.4 g/dL (32.0-36.0); MEAN CORPUSCULAR VOLUME 92.4 fL (81.0-99.0); MONOCYTES # (AUTO) 0.3 10^3/uL (0.0-1.0); MONOCYTES % (AUTO) 8.1 %; NEUTROPHILS # (AUTO) 2.2 10^3/uL (1.5-6.6); NEUTROPHILS % (AUTO) 55.4 %; PLT - PLATELET COUNT 198 10^3/uL (130-450); RED BLOOD COUNT 4.37 10^6/uL (4.20-5.40); RED CELL DISTRIBUTION WIDTH 12.4 % (12.0-15.0)
[2020-06-23 18:31] LABS: ALBUMIN/GLOBULIN RATIO 2.1 (1.0-2.2); ALKALINE PHOSPHATASE 39 IU/L (42-121); ALT ALANINE AMINOTRANSFERASE 13 IU/L (10-60); AST ASPARTATE AMINOTRANSFERASE 17 IU/L (10-42); BILIRUBIN,TOTAL 1.5 mg/dL (0.2-1.0); BUN - BLOOD UREA NITROGEN 14 mg/dL (6-20); CALCIUM 8.6 mg/dL (8.5-10.3); CARBON DIOXIDE - CO2 27 mmol/L (21-32); CHLORIDE 103 mmol/L (101-111); CHOL/HDL RATIO 2.6 (<4.4); CHOLESTEROL 175 mg/dL; CREATININE 0.5 mg/dL (0.4-1.0); GLUCOSE 98 mg/dL (70-100); HDL CHOLESTEROL 68 mg/dL; LDL CHOLESTEROL,CALCULATED 98 mg/dL; LDL/HDL RATIO 1.4 (<4.4); TOTAL PROTEIN 5.9 g/dL (6.7-8.2); VLDL CHOLESTEROL 9 mg/dL
== END 2020-06-23 23:59 | disposition home or self-care (01) ==
LOC: LAB.WCP 08:00
PROVIDERS: ATTEND Nurse Practitioner Family
DX: Z00.00 Encounter for general adult medical examination without abnormal findings (principal)
CPT/HCPCS: 36415; 80053; 80061; 83721; 84443; 85025

== ENCOUNTER 2020-07-01 08:00 | Outpatient (CLI) | payer OTHER ==
[2020-07-02 13:42] LABS: HEPATITIS C ANTIBODY NON-REACTIVE (NON-REACTIVE)
== END 2020-07-01 23:59 | disposition home or self-care (01) ==
LOC: LAB.WCP 08:00
PROVIDERS: ATTEND Nurse Practitioner Family
DX: R17 Unspecified jaundice (principal)
CPT/HCPCS: 36415; 86803

== ENCOUNTER 2020-07-08 09:59 | Outpatient (CLI) | payer OTHER ==
--- NOTE | 2020-07-09 12:32 | Mammography Report ---
BILATERAL DIGITAL SCREENING MAMMOGRAM 3D/2D: 07/08/2020 CLINICAL: Routine screening. Comparison is made to exam dated: 04/08/2019 mammogram - [facility]. The tissue o f both breasts is extremely dense, which lowers the sensitivity of mammography. No significant masses, calcifications, or other findings are seen in either breast. There has been no significant interval change. IMPRESSION: NEGATIVE There is no mammographic evidence of malignancy. A 1 year screening mammogram is recommended. This exam was interpreted at Station ID: [id number]. NOTE: For mammograms, a report in lay terms will be sent to the patient. Approximately 15% of breast malignancies will not be visualized mammographically. In the management of a palpable breast mass, a negative mammogram must not discourage biopsy of a clinically suspicious lesion. Electronically Signed By: Gigi Almodovar M.D. ddp/penrad:07/08/2020 10:51:07 ACR BI-RADS Category 1: Negative 3341F PARENCHYMAL PATTERN: (VD) - The breast(s) demonstrate(s) extremely dense parenchyma, limiting the sen sitivity of mammography. BI-RADS CATEGORY: (1) - 1 RECOMMENDATION: (ANNUAL) - Recommend routine annual screening mammography. [id number] 1 year screening LATERALITY: (B)
== END 2020-07-08 10:00 | disposition home or self-care (01) ==
LOC: DI.N 09:59
DX: Z12.31 Encounter for screening mammogram for malignant neoplasm of breast (principal)

== ENCOUNTER 2020-07-11 07:25 | Outpatient (CLI) | payer OTHER ==
[2020-07-11] MEDS ORDERED: IOVERSOL 320 100 ML VIAL IVP ONE (08:40)
--- NOTE | 2020-07-11 10:07 | Ultrasound Report ---
PROCEDURE: Abdomen Limited INDICATIONS: ELEVATED BILIRUBIN TECHNIQUE: Real-time focused scanning was performed of the abdomen, with image documentation. COMPARISON: None FINDINGS: The liver demonstrates normal size. The liver demonstrates mildly increased echogenicity, which limits ultrasound sensitivity for detection of masses. Mobile sludge can be seen within the gallbladder. The gallbladder wall does not appear thickened. The re is no specific pericholecystic fluid. The sonographic Kinney's sign is negative. No biliary ductal dilatation is seen. The common bile duct measures 5 mm. The visualized pancreas is within normal limits. The visualized right kidney is unremarkable. IMPRESSION: Fatty liver infiltration. Sludge seen within the gallbladder, without additional gallbladder abnormality. Reviewed by: Rome Kendall MD on 07/11/2020 9:06 AM [facility] Approved by: Rome Kendall MD on 07/11/2020 9:06 AM [facility] Station ID: [id number]
== END 2020-07-11 07:26 | disposition home or self-care (01) ==
LOC: DI 07:25
PROVIDERS: ATTEND Nurse Practitioner Family
DX: R17 Unspecified jaundice (principal); K76.0 Fatty (change of) liver, not elsewhere classified; K82.8 Other specified diseases of gallbladder
CPT/HCPCS: 76705; Q9967

== ENCOUNTER 2021-08-08 10:31 | Outpatient (CLI) | payer OTHER ==
--- NOTE | 2021-08-09 10:24 | Mammography Report ---
BILATERAL DIGITAL SCREENING MAMMOGRAM 3D/2D: 08/08/2021 CLINICAL: Routine screening. Comparison is made to exams dated: 07/08/2020 mammogram and 04/08/2019 mammogram - [facility]. The tissue of both breasts is extremely dense, which lowers the sensitivity of mammograp hy. No significant masses, calcifications, or other findings are seen in either breast. There has been no significant interval change. IMPRESSION: NEGATIVE There is no mammographic evidence of malignancy. A 1 year screening mammogram is recommended. This exam was interpreted at Station ID: [id number]. NOTE: For mammograms, a report in lay terms will be sent to the patient. Approximately 15% of breast malignancies will not be visualized mammographically. In the management of a palpable breast mass, a negative mammogram must not discourage biopsy of a clinically suspicious lesion. Electronically Signed By: Milton Mendenhall M.D. slc/penrad:08/08/2021 16:43:16 ACR BI-RADS Category 1: Negative 3341F PARENCHYMAL PATTERN: (VD) - The breast(s) demonstrate(s) extremely dense parenchyma, limiting the sen sitivity of mammography. BI-RADS CATEGORY: (1) - 1 RECOMMENDATION: (ANNUAL) - Recommend routine annual screening mammography. 20220809 1 year screening LATERALITY: (B)
== END 2021-08-08 10:32 | disposition home or self-care (01) ==
LOC: DI.N 10:31
DX: Z12.31 Encounter for screening mammogram for malignant neoplasm of breast (principal)

== ENCOUNTER 2022-10-04 11:18 | Outpatient (CLI) | payer OTHER ==
--- NOTE | 2022-10-05 11:21 | Mammography Report ---
BILATERAL DIGITAL SCREENING MAMMOGRAM 3D/2D: 10/04/2022 CLINICAL: Routine screening. Comparison is made to exams dated: 08/08/2021 mammogram, 07/08/2020 mammogram, and 04/08/2019 mammogra m - [facility]. Both breasts are extremely dense, which lowers the sensitivity of mammography (category d />75% gland ular tissue). No significant masses, calcifications, or other findings are seen in either breast. There has been no significant interval change. IMPRESSION: NEGATIVE There is no mammographic evidence of malignancy. A 1 year screening mammogram is recommended. Based on the Tyrer Cuzick model (a risk assessment model) the patients lifetime risk is 17.3% and he r 10 year risk is 3.2%. According to the ACR, ACS, and NCCN guidelines, an annual breast MRI exam lali ng with mammogram is recommended if the patients lifetime risk is 20% or greater. This exam was interpreted at Station ID: [id number]. NOTE: For mammograms, a report in lay terms will be sent to the patient. Approximately 15% of breast malignancies will not be visualized mammographically. In the management of a palpable breast mass, a negative mammogram must not discourage biopsy of a clinically suspicious lesion. Electronically Signed By: Rj brown/susy:10/04/2022 13:32:54 letter sent: No_Letter ACR BI-RADS Category 1: Negative 3341F PARENCHYMAL PATTERN: (VD) - The breast(s) demonstrate(s) extremely dense parenchyma, limiting the sen sitivity of mammography. BI-RADS CATEGORY: (1) - 1 Mammogram [id number] 1 year screening LATERALITY: (B)
== END 2022-10-04 11:19 | disposition home or self-care (01) ==
LOC: DI.N 11:18
DX: Z12.31 Encounter for screening mammogram for malignant neoplasm of breast (principal)

== ENCOUNTER 2023-04-17 07:07 | Day surgery (SDC) | payer OTHER ==
[~2023-04-17 07:07] MED LIST changes: -CEFAZOLIN SODIUM IN 0.9 % NACL 2 GM/100 ML BAG IV ONE; +PROPOFOL 500 MG/50 ML 500 MG/50 ML VIAL ONE
[2023-04-17] MEDS ORDERED: LACTATED RINGERS 1,000 ML IV ONE ×2 (07:23→09:18)
[2023-04-17 07:35] VITALS: O2SAT 100
--- NOTE | 2023-04-17 08:31 | ANESTHESIA ---
Pre-Anesthesia VS, & Labs - Diagnosis screening - Procedure colonoscopy Vital Signs: Temp Pulse Resp BP Pulse Ox O2 Flow Rate 36.2 C L 67 16 118/72 100 04/17/23 07:23 04/17/23 07:23 04/17/23 07:23 04/17/23 07:23 04/17/23 07:23 Height: 5 ft 6 in Weight (kg): 59.1 kg Body Mass Index: 21.0 BMI Classification: Normal - NPO >8 hours - Is Patient ?: No - Lab Results Lab results reviewed: Yes Home Medications and Allergies Allergies/Adverse Reactions: Allergies Allergy/AdvReac Type Severity Reaction Status Date / Time No Known Drug Allergies Allergy Verified 04/17/23 07:01 Anes History & Medical History - Anesthetic History Anesthesia Complications: reports: No previous complications Family history of Anesthesia Complications: Denies Family history of Malignant Hyperthermia: Denies - Medical History Cardiovascular: reports: None Pulmonary: reports: None, Other Gastrointestinal: reports: None Urinary: reports: None Neuro: reports: None Musculoskeletal: reports: None Endocrine/Autoimmune: reports: None Skin: reports: None Smoking Status: Never smoker Psychosocial: reports: No issues indicated - Surgical History Gynecologic: reports: Hysterectomy Exam General: Alert, Oriented x3, Cooperative Dental: WNL Mouth Openin Fingerbreadth Neck Mobility: Normal Mallampati classification: II Thyromental Distance: 4-6 cm Respiratory: Lungs clear Cardiovascular: Regular rate Plan Anesthesia Type: Total IV Consent for Procedure(s) Verified and Reviewed: Yes Code Status: Attempt Resuscitation ASA classification: 1-Healthy patient Is this case an emergency?: No
[2023-04-17 10:12] VITALS: BP 119/50
--- NOTE | 2023-04-17 12:48 | ANESTHESIA POST OP EVALUATION ---
Anesthesia Post Eval - Post Anesthesia Eval Vitals: Last Vital Signs Temp 36.6 C 04/17/23 10:08 Pulse 58 L 04/17/23 10:08 Resp 16 04/17/23 10:08 BP 119/50 L 04/17/23 10:08 Pulse Ox 100 04/17/23 10:08 O2 Flow Rate CV Function Including HR & BP: Stable Pain Control: Satisfactory Nausea & Vomiting: Negative Mental Status: Baseline Respiratory Status: Airway Patent Hydration Status: Satisfactory Anesthesia Complications: None
== END 2023-04-17 07:08 | disposition home or self-care (01) ==
LOC: SDS 07:07
PROVIDERS: ATTEND Surgery
PROC: 0DBN8ZZ Excision of Sigmoid Colon, Via Natural or Artificial Opening Endoscopic (ICD-10-PCS; principal; 2023-04-17 08:30)
DX: Z12.11 Encounter for screening for malignant neoplasm of colon (principal); K63.5 Polyp of colon
CPT/HCPCS: 45380; J7120

== ENCOUNTER 2023-10-17 10:33 | Outpatient (CLI) | payer BC ==
[2023-10-17 12:08] LABS: BASOPHILS % (AUTO) 0.4 %; EOSINOPHILS # (AUTO) 0.1 10^3/uL (0.0-0.7); EOSINOPHILS % (AUTO) 0.9 %; HCT - HEMATOCRIT 42.6 % (37.0-47.0); HGB - HEMOGLOBIN 13.9 g/dL (12.0-16.0); LYMPHOCYTES # (AUTO) 1.7 10^3/uL (1.5-3.5); LYMPHOCYTES % (AUTO) 32.6 %; MEAN CORPUSCULAR HEMOGLOBIN 31.4 pg (27.0-31.0); MEAN CORPUSCULAR HGB CONC 32.6 g/dL (32.0-36.0); MEAN CORPUSCULAR VOLUME 96.2 fL (81.0-99.0); MEAN PLATELET VOLUME 11.1 fL (7.9-10.8); MONOCYTES # (AUTO) 0.4 10^3/uL (0.0-1.0); NEUTROPHILS # (AUTO) 3.1 10^3/uL (1.5-6.6); NEUTROPHILS % (AUTO) 58.9 %; PLT - PLATELET COUNT 196 10^3/uL (130-450); RED BLOOD COUNT 4.43 10^6/uL (4.20-5.40); RED CELL DISTRIBUTION WIDTH 12.2 % (12.0-15.0); WHITE BLOOD COUNT 5.3 x10^3/uL (4.8-10.8)
[2023-10-17 12:58] LABS: ALBUMIN 4.3 g/dL (3.2-5.5); CALCIUM 9.1 mg/dL (8.5-10.3); CREATININE 0.6 mg/dL (0.6-1.3); TOTAL PROTEIN 6.5 g/dL (6.4-8.9)
== END 2023-10-17 10:34 | disposition home or self-care (01) ==
LOC: LAB.N 10:33
PROVIDERS: ATTEND Nurse Practitioner Family
DX: K05.30 Chronic periodontitis, unspecified (principal)
CPT/HCPCS: 36415; 80053; 82607; 82746; 85025

== ENCOUNTER 2023-11-02 14:10 | Outpatient (CLI) | payer BC ==
[2023-11-02] MEDS ORDERED: iohexoL-300 100 ML VIAL ONE (14:30)
--- NOTE | 2023-11-02 15:40 | CT Report ---
PROCEDURE: Maxillofacial W INDICATIONS: CHRONIC DENTAL PAIN CONTRAST: 100ml omni 300 TECHNIQUE: After the administration of intravenous contrast, 3.0 mm axial sections acquired from the mid-neck to the frontal sinuses, with coronal reformatting. For radiation dose reduction, the following was use d: automated exposure control, adjustment of mA and/or kV according to patient size. 3-D reformatte d images were performed. COMPARISON: None. FINDINGS: Image quality: Excellent. Soft tissues: There is a mild avascular brain mass seen along the anteromedial aspects of the right temporal lobe, measuring 3.5 x 4 cm in greatest axial dimension, as seen on series 2 image 144. Assoc iated mass effect is seen, with the brainstem is deviated slightly to the left. There is an enlarged pituitary seen, as demonstrated on series 5 image 50, measuring 1.4 x 1.4 x 1.5 cm. No edema, masses, or fluid collections. No enlarged lymph nodes. Vascular: Visualized vascular structures appear patent throughout. Bony vascular foramina and canal s appear normal. Bones: Facial bones appear intact, without fractures, erosions, or destruction. Visualized portions of the skull base and auditory canals also appear normal. Sinuses: There is a mucous retention cyst seen within the inferior right maxillary sinus. The paranas al sinuses otherwise appear clear. The ostiomeatal complexes are patent, yet they are constitutionall y narrowed, with bilateral Sunny cells. IMPRESSION: There is intracranial mass seen that measures up to 4 cm. The appearance is nonspecific, although ple ase consider meningioma and trigeminal nerve schwannoma. Differential diagnosis also includes a pitui tary macroadenoma, yet this is considered to be less likely. An enlarged pituitary also seen. Follow-up skull base protocol brain MRI recommended, performed without and with IV contrast. Neurosurgical referral is recommended. Note: Findings and recommendations discussed by telephone with Cecily Macario at 2:37 PM [place] time o n 11/02/2023. Reviewed by: Rome Kendall MD on 11/02/2023 2:38 PM [facility] Approved by: Rome Kendall MD on 11/02/2023 2:38 PM [facility] Station ID: [id number]
[2023-11-02] MEDS: iohexoL-300 100 ML VIAL IVP ONE (16:02)
== END 2023-11-02 14:11 | disposition home or self-care (01) ==
LOC: DI 14:10
PROVIDERS: ATTEND Physician Assistant Medical
DX: G93.9 Disorder of brain, unspecified (principal); E23.6 Other disorders of pituitary gland
CPT/HCPCS: 70487; Q9967

== ENCOUNTER 2023-11-05 16:09 | Outpatient (CLI) | payer BC ==
[~2023-11-05 16:09] MED LIST changes: +GADOTERATE MEGLUMINE 7.5 MMOL/15 ML VIAL ONE; -PROPOFOL 500 MG/50 ML 500 MG/50 ML VIAL ONE
--- NOTE | 2023-11-05 17:58 | MRI Report ---
PROCEDURE: MRI brain with and without contrast INDICATIONS: BRAIN MASS TECHNIQUE: Multiplanar multisequential MR images of the brain were obtained before and after intrave nous contrast administration. COMPARISON: None. FINDINGS: CSF spaces: No hydrocephalus Brain: There is an avidly enhancing extra-axial mass lesion centered over the right greater sphenoid wing extending into the middle cranial fossa but also involving the right cavernous sinus where it e nvelops cavernous ICA, and also extends into the pituitary sella, expanding the sella. Mass extends i nto the suprasellar cistern displacing the optic chiasm and elevates the right mesial temporal lobe. Mass also extends anteriorly into the right orbital lesser fissure without significant involvement of the orbit proper. Nevertheless, mild proptosis is suggested. There is mass effect on the right cerebral peduncle. No significant cerebral edema. Mild midline shif t measures 3-4 mm. 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
[2023-11-05] MEDS: GADOTERATE MEGLUMINE 7.5 MMOL/15 ML VIAL IVP ONE (18:00)
== END 2023-11-05 16:10 | disposition home or self-care (01) ==
LOC: DI 16:09
PROVIDERS: ATTEND Physician Assistant Medical
DX: G93.89 Other specified disorders of brain (principal)

== ENCOUNTER 2024-01-07 10:22 | Outpatient (CLI) | payer OTHER ==
[2024-01-07 14:13] LABS: ALBUMIN 3.8 g/dL (3.2-5.5); ALBUMIN/GLOBULIN RATIO 1.7 (1.0-2.2); ALKALINE PHOSPHATASE 44 IU/L (42-121); ALT ALANINE AMINOTRANSFERASE 15 IU/L (10-60); AST ASPARTATE AMINOTRANSFERASE 12 IU/L (10-42); BILIRUBIN,TOTAL 0.6 mg/dL (0.2-1.0); BUN - BLOOD UREA NITROGEN 9 mg/dL (6-20); CALCIUM 8.5 mg/dL (8.5-10.3); CARBON DIOXIDE - CO2 30 mmol/L (21-32); CHLORIDE 105 mmol/L (101-111); CHOL/HDL RATIO 2.6 (<4.4); CHOLESTEROL 156 mg/dL; CREATININE 0.5 mg/dL (0.6-1.3); GFR - MDRD 133 (>89); GLUCOSE 88 mg/dL (74-104); HDL CHOLESTEROL 60 mg/dL; LDL CHOLESTEROL,CALCULATED 62 mg/dL; POTASSIUM 3.8 mmol/L (3.5-4.5); SODIUM 139 mmol/L (135-145); TRIGLYCERIDES 169 mg/dL; VLDL CHOLESTEROL 34 mg/dL
[2024-01-07 14:37] LABS: BASOPHILS % (AUTO) 0.4 %; EOSINOPHILS % (AUTO) 0.7 %; HCT - HEMATOCRIT 36.4 % (37.0-47.0); HGB - HEMOGLOBIN 11.8 g/dL (12.0-16.0); LYMPHOCYTES # (AUTO) 1.3 10^3/uL (1.5-3.5); LYMPHOCYTES % (AUTO) 28.7 %; MEAN CORPUSCULAR HEMOGLOBIN 31.6 pg (27.0-31.0); MEAN CORPUSCULAR HGB CONC 32.4 g/dL (32.0-36.0); MEAN CORPUSCULAR VOLUME 97.3 fL (81.0-99.0); MEAN PLATELET VOLUME 11.1 fL (7.9-10.8); MONOCYTES # (AUTO) 0.3 10^3/uL (0.0-1.0); NEUTROPHILS # (AUTO) 2.9 10^3/uL (1.5-6.6); NEUTROPHILS % (AUTO) 62.8 %; PLT - PLATELET COUNT 172 10^3/uL (130-450); RED BLOOD COUNT 3.74 10^6/uL (4.20-5.40); RED CELL DISTRIBUTION WIDTH 13.5 % (12.0-15.0); WHITE BLOOD COUNT 4.6 x10^3/uL (4.8-10.8)
== END 2024-01-07 10:23 | disposition home or self-care (01) ==
LOC: LAB.N 10:22
PROVIDERS: ATTEND Nurse Practitioner
DX: Z13.220 Encounter for screening for lipoid disorders (principal); R53.83 Other fatigue; F41.9 Anxiety disorder, unspecified; F32.A Depression, unspecified
CPT/HCPCS: 36415; 80053; 80061; 83721; 84443; 85025

== ENCOUNTER 2024-01-16 10:21 | Outpatient (CLI) | payer OTHER ==
--- NOTE | 2024-01-17 08:28 | Mammography Report ---
BILATERAL DIGITAL SCREENING MAMMOGRAM 3D/2D: 01/16/2024 CLINICAL: Routine screening. Comparison is made to exams dated: 10/04/2022 mammogram, 08/08/2021 mammogram, and 07/08/2020 mammogram - [facility]. Both breasts are extremely dense, which lowers the sensitivity of mammography (category d />75% gland ular tissue). No significant masses, calcifications, or other findings are seen in either breast. There has been no significant interval change. IMPRESSION: NEGATIVE There is no mammographic evidence of malignancy. A 1 year screening mammogram is recommended. Based on the Tyrer Cuzick model (a risk assessment model) the patient's lifetime risk is 17.3% and he r 10 year risk is 3.4%. According to the ACR, ACS, and NCCN guidelines, an annual breast MRI exam lali ng with mammogram is recommended if the patient's lifetime risk is 20% or greater. This exam was interpreted at Station ID: [id number]. NOTE: For mammograms, a report in lay terms will be sent to the patient. Approximately 15% of breast malignancies will not be visualized mammographically. In the management of a palpable breast mass, a negative mammogram must not discourage biopsy of a clinically suspicious lesion. Electronically Signed By: Milton abreu/susy:01/16/2024 16:19:34 letter sent: No_Letter ACR BI-RADS Category 1: Negative 3341F PARENCHYMAL PATTERN: (VD) - The breast(s) demonstrate(s) extremely dense parenchyma, limiting the sen sitivity of mammography. BI-RADS CATEGORY: (1) - 1 RECOMMENDATION: (ANNUAL) - Recommend routine annual screening mammography. [id number] 1 year screening LATERALITY: (B)
== END 2024-01-16 10:22 | disposition home or self-care (01) ==
LOC: DI.N 10:21
PROVIDERS: ATTEND Nurse Practitioner
DX: Z12.31 Encounter for screening mammogram for malignant neoplasm of breast (principal); R92.30 Dense breasts, unspecified